=== PATIENT | male | born 1960 | race Caucasian/White ===

== ENCOUNTER 2023-01-22 20:58 | Emergency (ER) | payer OTHER ==
[~2023-01-22] VITALS: Ht 172.7 cm; Wt 68.2 kg
[2023-01-22 20:59] VITALS: BP 119/67; TEMP 99.8; O2SAT 95
== END 2023-01-23 01:20 | disposition left against medical advice (07) ==
LOC: M ED 20:58
DX: Z53.21 Procedure and treatment not carried out due to patient leaving prior to being seen by health care provider (principal)

== ENCOUNTER → 2023-03-01 | Outpatient (CLI) | payer MEDICARE, OTHER ==
[~2023-03-01] MED LIST: ASPI-161 PO; ATOR1TAB19 PO; ATOR40TA75 PO; FAMO40TA3 PO; LIDO5DIS41 TD; NYST-38 PO; PERCOCET PO; TRAM50TA2 PO; VITMTA PO
[2023-03-01 13:27] LABS: BASO # 0.1 10^3/uL (0.0-0.2); BASO % 0.9 % (0.0-1.0); EOS # 0.1 10^3/uL (0.0-0.5); EOS % 0.7 % (0.0-3.0); HEMATOCRIT 46.2 % (42.0-52.0); HEMOGLOBIN 14.8 g/dl (13.5-17.5); LYMPH # 1.6 10^3/uL (1.5-5.0); LYMPH % 18.8 % (24.0-44.0); MEAN CORPUSCULAR HEMOGLOBIN 30.8 pg (27.0-33.0); MONO # 0.5 10^3/uL (0.0-0.8); MONO % 5.6 % (2.0-8.0); NEUTROPHILS # 6.1 10^3/uL (1.5-8.5); NEUTROPHILS % 73.8 % (36.0-66.0); PLATELET COUNT, AUTOMATED 254 10^3/uL (150-450); RED BLOOD COUNT 4.81 10^6/uL (4.30-6.10); WHITE BLOOD COUNT 8.2 10^3/uL (4.0-10.0)
[2023-03-01 13:42] LABS: ALBUMIN 3.6 G/DL (3.2-5.2); ALKALINE PHOSPHATASE 94 U/L (46-116); ALT/SGPT 13 U/L (7.0-40); AST/SGOT 15 U/L (<34); BILIRUBIN,TOTAL 0.3 MG/DL (0.3-1.2); BLOOD UREA NITROGEN 10 MG/DL (9-23); CALCIUM LEVEL 9.2 MG/DL (8.3-10.6); CARBON DIOXIDE LEVEL 30 MMOL/L (20-31); CHLORIDE LEVEL 106 MMOL/L (98-107); GLOMERULAR FILTRATION RATE > 60.0 (>49); GLUCOSE, FASTING 90 MG/DL (74-106); POTASSIUM SERUM 4.6 MMOL/L (3.5-5.1); SODIUM LEVEL 142 MMOL/L (136-145); TOTAL PROTEIN 6.4 G/DL (5.7-8.2)
[2023-03-01 13:43] LABS: THYROID STIMULATING HORMONE 1.302 uIU/ML (0.55-4.78); THYROXINE (T4) 11.8 UG/DL (4.5-10.9)
[2023-03-01 13:44] LABS: FREE THYROXINE INDEX 3.9 % (1.4-3.8); T UPTAKE 33.3 % (22.5-37.0)
[2023-03-01 15:10] LABS: ERYTHROCYTE SEDIMENTATION RATE 15 mm/hr (0-20)
== END ==
LOC: M LAB 12:16
PROVIDERS: ATTEND Nurse Practitioner Family
DX: D49.2 Neoplasm of unspecified behavior of bone, soft tissue, and skin (principal); B35.1 Tinea unguium; L30.9 Dermatitis, unspecified; Z79.899 Other long term (current) drug therapy
CPT/HCPCS: 11102; 36415; 80053; 84436; 84443; 84479; 85025; 85652; 86140; G0463

== ENCOUNTER 2023-03-02 20:29 | Emergency (ER) | payer MEDICARE, OTHER ==
[~2023-03-02] VITALS: Ht 177.8 cm; Wt 68.6 kg
[2023-03-02 20:30] VITALS: TEMP 99.2
[2023-03-02] MEDS ORDERED: ASPI-161 PO (20:37)
[2023-03-02] MEDS ORDERED: VITMTA PO (20:37)
[2023-03-02] MEDS ORDERED: FAMO40TA3 PO ×2 (20:37)
[2023-03-02] MEDS ORDERED: ATOR1TAB19 PO (20:37)
[2023-03-02] MEDS ORDERED: MORPHINE 4 MG/ML 1ML VIAL IV ONE (21:10)
[2023-03-02] MEDS ORDERED: ONDANSETRON 4MG 2ML VIAL IV ONE (21:10)
[2023-03-02 22:46] LABS: HEMATOCRIT 39.2 % (42.0-52.0); HEMOGLOBIN 13.1 g/dl (13.5-17.5); MEAN CORPUSCULAR HEMOGLOBIN 31.8 pg (27.0-33.0); MEAN CORPUSCULAR HGB CONC 33.4 g/dl (32.0-36.5); MEAN CORPUSCULAR VOLUME 95.1 fl (80.0-96.0); PLATELET COUNT, AUTOMATED 233 10^3/uL (150-450); RED BLOOD COUNT 4.12 10^6/uL (4.30-6.10); WHITE BLOOD COUNT 11.8 10^3/uL (4.0-10.0)
[2023-03-02] MEDS ORDERED: LIDOCAINE 5% (LIDODERM) PATCH TD ONE (22:50)
[2023-03-02] MEDS ORDERED: traMADol 50 MG TAB PO ONE (22:50)
[2023-03-02] MEDS ORDERED: KETOROLAC 30 MG/ML 1ML VIAL IV ONE (22:50)
[2023-03-02 23:22] LABS: LIPASE 24 U/L (12-53)
[2023-03-02 23:27] LABS: ALBUMIN 3.4 G/DL (3.2-5.2); ALKALINE PHOSPHATASE 82 U/L (46-116); ALT/SGPT 12 U/L (7.0-40); AST/SGOT 19 U/L (<34); BILIRUBIN,TOTAL 0.3 MG/DL (0.3-1.2); BLOOD UREA NITROGEN 14 MG/DL (9-23); CALCIUM LEVEL 9.1 MG/DL (8.3-10.6); CARBON DIOXIDE LEVEL 29 MMOL/L (20-31); CHLORIDE LEVEL 105 MMOL/L (98-107); GLOMERULAR FILTRATION RATE > 60.0 (>49); GLUCOSE, FASTING 88 MG/DL (74-106); POTASSIUM SERUM 3.9 MMOL/L (3.5-5.1); SODIUM LEVEL 139 MMOL/L (136-145); TOTAL PROTEIN 5.9 G/DL (5.7-8.2)
[2023-03-02] MEDS ORDERED: LIDO5DIS41 TD (23:35)
[2023-03-02] MEDS ORDERED: TRAM50TA2 PO (23:35)
[2023-03-02] MEDS ORDERED: traMADol 50 MG TAB (HOME DOSE PACK) PO ONE (23:40)
[2023-03-02 23:50] VITALS: BP 113/73; O2SAT 94
== END 2023-03-03 00:11 | disposition home or self-care (01) ==
LOC: M ED 20:29
DX: S50.02XA Contusion of left elbow, initial encounter (principal); S80.02XA Contusion of left knee, initial encounter; S20.212A Contusion of left front wall of thorax, initial encounter; V12.4XXA Pedal cycle driver injured in collision with two- or three-wheeled motor vehicle in traffic accident, initial encounter; Y92.410 Unspecified street and highway as the place of occurrence of the external cause; F17.200 Nicotine dependence, unspecified, uncomplicated; Z88.7 Allergy status to serum and vaccine; Z88.5 Allergy status to narcotic agent

== ENCOUNTER → 2023-03-04 | Outpatient (CLI) | payer OTHER | LOC: M SOG 14:36 | PROVIDERS: ATTEND Physician Assistant | DX: M25.522 Pain in left elbow (principal); M85.822 Other specified disorders of bone density and structure, left upper arm; M19.021 Primary osteoarthritis, right elbow ==

== ENCOUNTER 2023-03-05 15:27 | Inpatient (IN) | payer OTHER ==
[~2023-03-05] VITALS: Ht 175.3 cm; Wt 68.0 kg
[~2023-03-05 15:27] MED LIST changes: -ATOR40TA75 PO; -NYST-38 PO; -PERCOCET PO
[2023-03-05 16:53] LABS: BASO % 0.2 % (0.0-1.0); EOS % 0.1 % (0.0-3.0); HEMATOCRIT 40.1 % (42.0-52.0); HEMOGLOBIN 13.1 g/dl (13.5-17.5); LYMPH # 0.9 10^3/uL (1.5-5.0); LYMPH % 6.6 % (24.0-44.0); MEAN CORPUSCULAR HEMOGLOBIN 31.6 pg (27.0-33.0); MEAN CORPUSCULAR HGB CONC 32.7 g/dl (32.0-36.5); MEAN CORPUSCULAR VOLUME 96.6 fl (80.0-96.0); MONO # 0.6 10^3/uL (0.0-0.8); MONO % 4.8 % (2.0-8.0); NEUTROPHILS # 11.2 10^3/uL (1.5-8.5); NEUTROPHILS % 87.8 % (36.0-66.0); PLATELET COUNT, AUTOMATED 225 10^3/uL (150-450); RED BLOOD COUNT 4.15 10^6/uL (4.30-6.10); WHITE BLOOD COUNT 12.8 10^3/uL (4.0-10.0)
[2023-03-05 17:26] LABS: INR 0.96
[2023-03-05 17:27] LABS: PARTIAL THROMBOPLASTIN TIME 29.4 SECONDS (24.8-34.2)
[2023-03-05 17:29] LABS: ALBUMIN 3.4 G/DL (3.2-5.2); ALKALINE PHOSPHATASE 84 U/L (46-116); ALT/SGPT 11 U/L (7.0-40); AST/SGOT 19 U/L (<34); BILIRUBIN,DIRECT 0.3 MG/DL (<0.4); BILIRUBIN,TOTAL 0.8 MG/DL (0.3-1.2); BLOOD UREA NITROGEN 13 MG/DL (9-23); CALCIUM LEVEL 8.3 MG/DL (8.3-10.6); CARBON DIOXIDE LEVEL 28 MMOL/L (20-31); CHLORIDE LEVEL 100 MMOL/L (98-107); CK-MB VALUE MASS < 1.0 NG/ML (<3.6); CPK CREATINE PHOSPHOKINASE 359 U/L (46-171); GLOMERULAR FILTRATION RATE > 60.0 (>49); GLUCOSE, FASTING 98 MG/DL (74-106); MB/CK RELATIVE INDEX 0.27 (< OR =4); POTASSIUM SERUM 4.4 MMOL/L (3.5-5.1); SODIUM LEVEL 136 MMOL/L (136-145); TOTAL PROTEIN 6.2 G/DL (5.7-8.2)
[2023-03-05 18:18] LABS: THYROID STIMULATING HORMONE 0.488 uIU/ML (0.55-4.78)
[2023-03-05 18:19] LABS: FREE T4 1.19 NG/DL (0.89-1.76)
[2023-03-05 19:09] LABS: MB/CK RELATIVE INDEX 0.29 (< OR =4)
[2023-03-05] MEDS ORDERED: IPRATROPIUM 0.5MG/ALBUTEROL 2.5MG INH SOL UD 3ML (DUONEB) NEB ONE (20:50)
[2023-03-05] MEDS ORDERED: ISOVUE-370 76% 100ML VIAL As Ordered ONE (20:57)
[2023-03-05] MEDS ORDERED: LIDO5DIS41 TD (21:42)
[2023-03-05] MEDS ORDERED: HOME MED LIST COMPLETE! XX SCH (21:55)
[2023-03-05 22:00] LABS: RSV AMPLIFICATION NEGATIVE (NEGATIVE)
[2023-03-06] MEDS ORDERED: ACETAMINOPHEN TAB 650MG DOSE (2X325MG) PO PRN (00:05)
[2023-03-06 01:15] VITALS: BP 95/62; TEMP 97.7; O2SAT 91
[2023-03-06] MEDS: NYSTATIN 500,000U/5ML SUSP UDC SS SCH ×3 (01:30→13:51)
[2023-03-06] MEDS ORDERED: ALBUTEROL SULFATE 2.5MG/0.5ML INH NEB SOLN NEB PRN (01:40)
[2023-03-06] MEDS: IPRATROPIUM 0.5MG/ALBUTEROL 2.5MG INH SOL UD 3ML (DUONEB) NEB SCH ×3 (01:53→13:15)
[2023-03-06 06:00] VITALS: BP 85/59; TEMP 97.8; O2SAT 92
[2023-03-06 07:24] VITALS: BP 102/80
[2023-03-06] MEDS ORDERED: MULTIVITAMINS/MINERALS THERAP 1 TAB PO SCH (09:00)
[2023-03-06] MEDS ORDERED: ASPIRIN 81MG ENTERIC TABLET PO SCH (09:00)
[2023-03-06] MEDS ORDERED: FAMOTIDINE 20 MG TAB PO SCH (09:00)
[2023-03-06] MEDS ORDERED: LIDOCAINE 5% (LIDODERM) PATCH TD SCH (09:00)
[2023-03-06] MEDS ORDERED: ENOXAPARIN 40MG/0.4ML SYRINGE (J1650 PER 10MG) SC SCH (09:00)
[2023-03-06] MEDS ORDERED: PERCOCET 5MG/325MG TAB PO PRN (10:35)
[2023-03-06 11:34] LABS: BASO % 0.5 % (0.0-1.0); EOS % 0.3 % (0.0-3.0); HEMATOCRIT 37.1 % (42.0-52.0); HEMOGLOBIN 12.1 g/dl (13.5-17.5); LYMPH # 1.1 10^3/uL (1.5-5.0); LYMPH % 14.2 % (24.0-44.0); MEAN CORPUSCULAR HEMOGLOBIN 31.5 pg (27.0-33.0); MEAN CORPUSCULAR HGB CONC 32.6 g/dl (32.0-36.5); MEAN CORPUSCULAR VOLUME 96.6 fl (80.0-96.0); MONO # 0.3 10^3/uL (0.0-0.8); MONO % 3.8 % (2.0-8.0); NEUTROPHILS # 6.3 10^3/uL (1.5-8.5); NEUTROPHILS % 80.8 % (36.0-66.0); PLATELET COUNT, AUTOMATED 204 10^3/uL (150-450); RED BLOOD COUNT 3.84 10^6/uL (4.30-6.10); WHITE BLOOD COUNT 7.8 10^3/uL (4.0-10.0)
[2023-03-06 11:37] LABS: BLOOD UREA NITROGEN 13 MG/DL (9-23); CALCIUM LEVEL 8.2 MG/DL (8.3-10.6); CARBON DIOXIDE LEVEL 29 MMOL/L (20-31); CHLORIDE LEVEL 102 MMOL/L (98-107); CHOLESTEROL RISK RATIO 2.96 (<5); CREATININE FOR GFR 0.97 MG/DL (0.70-1.30); GLOMERULAR FILTRATION RATE > 60.0 (>49); GLUCOSE, FASTING 167 MG/DL (74-106); HDL CHOLESTEROL 30.7 MG/DL (>40); LDL CHOLESTEROL 47.3 MG/DL (<100); NON-HDL-C 60.3 MG/DL; POTASSIUM SERUM 3.8 MMOL/L (3.5-5.1); SODIUM LEVEL 138 MMOL/L (136-145)
[2023-03-06 11:39] LABS: HEMOGLOBIN A1c 5.4 % (4.0-6.0)
[2023-03-06] MEDS ORDERED: NYST-38 PO (13:29)
[2023-03-06] MEDS ORDERED: ATOR40TA75 PO (13:29)
[2023-03-06] MEDS ORDERED: PERCOCET PO (13:29)
[2023-03-06] MEDS ORDERED: ASPI-161 PO (13:31)
[2023-03-06 13:44] VITALS: BP 100/58; O2SAT 91
[2023-03-06] MEDS ORDERED: ATORVASTATIN 10 MG TAB PO SCH ×2 (21:00)
== END 2023-03-06 15:25 | disposition home or self-care (01) | DRG 605 ==
LOC: M ED 15:27 → M ED INP 23:52 → M MS5PR 03-06 01:03
PROVIDERS: ADMIT Family Medicine; ATTEND Internal Medicine
DX: S20.20XA Contusion of thorax, unspecified, initial encounter (principal); B37.0 Candidal stomatitis; J98.11 Atelectasis; F17.210 Nicotine dependence, cigarettes, uncomplicated; R11.2 Nausea with vomiting, unspecified; E78.5 Hyperlipidemia, unspecified; J44.9 Chronic obstructive pulmonary disease, unspecified; K21.9 Gastro-esophageal reflux disease without esophagitis; R09.02 Hypoxemia; V89.2XXD Person injured in unspecified motor-vehicle accident, traffic, subsequent encounter; D72.829 Elevated white blood cell count, unspecified; I95.9 Hypotension, unspecified; Z88.8 Allergy status to other drugs, medicaments and biological substances; Z79.899 Other long term (current) drug therapy; Z79.82 Long term (current) use of aspirin; Z88.7 Allergy status to serum and vaccine; Z91.119 Patient's noncompliance with dietary regimen due to unspecified reason

== ENCOUNTER → 2023-04-11 | Outpatient (CLI) | payer OTHER ==
[~2023-04-11] MED LIST changes: +ATOR40TA75 PO; +NYST-38 PO; +PERCOCET PO
== END ==
LOC: M SOG 15:44
PROVIDERS: ATTEND Physician Assistant
DX: M25.532 Pain in left wrist (principal); M19.032 Primary osteoarthritis, left wrist

== ENCOUNTER → 2023-04-23 | Outpatient (CLI) | payer MEDICARE, OTHER ==
[2023-04-23 09:54] LABS: BASO # 0.1 10^3/uL (0.0-0.2); BASO % 0.8 % (0.0-1.0); EOS # 0.1 10^3/uL (0.0-0.5); EOS % 1.8 % (0.0-3.0); HEMATOCRIT 40.3 % (42.0-52.0); HEMOGLOBIN 13.2 g/dl (13.5-17.5); LYMPH # 1.2 10^3/uL (1.5-5.0); LYMPH % 18.5 % (24.0-44.0); MEAN CORPUSCULAR HEMOGLOBIN 31.5 pg (27.0-33.0); MEAN CORPUSCULAR HGB CONC 32.8 g/dl (32.0-36.5); MEAN CORPUSCULAR VOLUME 96.2 fl (80.0-96.0); MONO # 0.5 10^3/uL (0.0-0.8); MONO % 7.6 % (2.0-8.0); NEUTROPHILS # 4.7 10^3/uL (1.5-8.5); NEUTROPHILS % 71.1 % (36.0-66.0); PLATELET COUNT, AUTOMATED 244 10^3/uL (150-450); RED BLOOD COUNT 4.19 10^6/uL (4.30-6.10); WHITE BLOOD COUNT 6.5 10^3/uL (4.0-10.0)
[2023-04-23 10:26] LABS: ALBUMIN 3.3 G/DL (3.2-5.2); ALKALINE PHOSPHATASE 88 U/L (46-116); ALT/SGPT 21 U/L (7.0-40); AST/SGOT 24 U/L (<34); BILIRUBIN,TOTAL 0.3 MG/DL (0.3-1.2); BLOOD UREA NITROGEN 11 MG/DL (9-23); CALCIUM LEVEL 8.5 MG/DL (8.3-10.6); CARBON DIOXIDE LEVEL 31 MMOL/L (20-31); CHLORIDE LEVEL 108 MMOL/L (98-107); CHOLESTEROL LEVEL 105 MG/DL (<200); CHOLESTEROL RISK RATIO 2.74 (<5); CREATININE FOR GFR 1.04 MG/DL (0.70-1.30); GLOMERULAR FILTRATION RATE > 60.0 (>49); GLUCOSE, FASTING 70 MG/DL (74-106); HDL CHOLESTEROL 38.3 MG/DL (>40); LDL CHOLESTEROL 52.5 MG/DL (<100); NON-HDL-C 66.7 MG/DL; POTASSIUM SERUM 4.1 MMOL/L (3.5-5.1); SODIUM LEVEL 143 MMOL/L (136-145); TOTAL PROTEIN 5.8 G/DL (5.7-8.2); TRIGLYCERIDES LEVEL 71 MG/DL (<150)
== END ==
LOC: M LAB 09:29
PROVIDERS: ATTEND Nurse Practitioner Family
DX: B35.8 Other dermatophytoses (principal); Z79.899 Other long term (current) drug therapy

== ENCOUNTER → 2024-04-07 | Outpatient (CLI) | payer OTHER ==
[~2024-04-07] MED LIST changes: -ASPI-161 PO; +ASPI-615 PO
== END ==
LOC: M RAD 10:37
PROVIDERS: ATTEND Internal Medicine Critical Care Medicine
DX: Z12.2 Encounter for screening for malignant neoplasm of respiratory organs (principal); F17.218 Nicotine dependence, cigarettes, with other nicotine-induced disorders; J43.9 Emphysema, unspecified; R91.1 Solitary pulmonary nodule; J47.9 Bronchiectasis, uncomplicated

== ENCOUNTER → 2024-07-08 | Outpatient (CLI) | payer OTHER | LOC: M RAD 07:54 | PROVIDERS: ATTEND Internal Medicine Critical Care Medicine | DX: J44.9 Chronic obstructive pulmonary disease, unspecified (principal); R91.1 Solitary pulmonary nodule ==